=== PATIENT | male | born 1960 | race Caucasian/White ===

== ENCOUNTER 2018-10-01 07:15 | Observation (INO) | payer OTHER ==
--- NOTE | 2018-10-01 06:42 | PDHPUP ---
History & Physical Update H&P update statement: This history and physical update is based on an assessment of the patient which was completed after admission or registration (within 24 hours), but prior to the surgery/procedure. H&P update: H&P reviewed & patient examined, no change in patient's condition since H&P completed
[~2018-10-01 07:15] MED LIST: ROPIVACAINE 0.2% 80 MG, EPINEPHrine 0.2 MG, KETOROLAC TROMETHAMINE 30 MG in SYRINGE 0 ML IU ONE; TRANEXAMIC ACID 3,000 MG in NS (SYRINGE) 50 ML IRR ONE; TRANEXAMIC ACID 3,000 MG/50 ML BAG IRR ONE
[2018-10-01] MEDS ORDERED: ACETAMINOPHEN 325 MG TAB PO ONE (10:18)
[2018-10-01] MEDS ORDERED: ceFAZolin 2 GM/DEXTROSE 100 ML IV ONE (10:18)
[2018-10-01] MEDS ORDERED: DEXAMETHASONE 4 MG/ML VIAL IVP ONE (10:18)
[2018-10-01] MEDS ORDERED: FAMOTIDINE 20 MG TAB PO ONE (10:18)
[2018-10-01] MEDS ORDERED: LR 1,000 ML IV ONE (10:20)
[2018-10-01] MEDS ORDERED: BUPIVACAINE/DEXTROSE 7.5MG/ML 2 ML SPINAL AMP SP ONE (11:05)
[2018-10-01] MEDS ORDERED: PHENYLEPHRINE HCL 100 MCG/ML SYR ONE (11:05)
[2018-10-01] MEDS ORDERED: LIDOCAINE 2% 100 MG/5 ML SYR ONE (11:05)
[2018-10-01] MEDS ORDERED: PROPOFOL/EMULSION 500 MG/50 ML BOTTLE IV ONE (11:06)
[2018-10-01] MEDS ORDERED: fentaNYL 100 MCG/2 ML INJ ONE (11:06)
[2018-10-01] MEDS ORDERED: MIDAZOLAM 2 MG/2 ML VIAL IVP ONE (11:54)
--- NOTE | 2018-10-01 11:54 | PDANEPAE ---
ANE History of Present Illness R knee DJD, here for R knee replacement ANE Past Medical History - Cardiovascular History Hx Hypertension: No Hx Arrhythmias: No Hx Chest Pain: No Hx Coronary Artery / Peripheral Vascular Disease: No Hx CHF / Valvular Disease: No Hx Palpitations: No - Pulmonary History Hx COPD: No Hx Asthma/Reactive Airway Disease: No Hx Recent Upper Respiratory Infection: No Hx Oxygen in Use at Home: No Hx Sleep Apnea: No Sleep Apnea Screening Result - Last Documented: Negative - Neurologic History Hx Cerebrovascular Accident: No Hx Seizures: No Hx Dementia: No - Endocrine History Hx Diabetes: No - Renal History Hx Renal Disorders: No - Liver History Hx Hepatic Disorders: No - Neurological & Psychiatric Hx Hx Neurological and Psychiatric Disorders: No - Cancer History Hx Cancer: No - Congenital Disorder History Hx Congenital Disorders: No - GI History Hx Gastrointestinal Disorders: No - Other Health History Other Health History: none - Chronic Pain History Chronic Pain: Yes (left knee pain, right shoulder and right wrist) - Surgical History Prior Surgeries: 2 left knee scopes. L KNEE TOTAL REPLACEMENT. R KNEE SCOPE. SHOULDER SURGERY. CARPEL TUNNEL RELEASE. VASECTOMY. tonsillectomy as child ANE Review of Systems Review of Systems: - Exercise capacity METS (RN): 6 METS ANE Patient History - Allergies Allergies/Adverse Reactions: Penicillins Allergy (Verified 09/20/14 10:49) Swelling/neck,face,throat - Home Medications Home Medications: Diclofenac Sodium 1% [Voltaren Gel (*)] 1 la TP DAILY PRN 09/19/18 [Last Taken 1 Week Ago ~09/24/18] Hydrocodone/APAP 5/325 [[place] 5/325 (*)] 2 each PO HS 09/19/18 [Last Taken 09/30] Ibuprofen [Motrin (*)] 300 mg PO BID PRN 09/19/18 [Last Taken 1 Week Ago ~] Tylenol 10/01/18 [Last Taken 09/30/18] - NPO status NPO Since - Liquids (Date): 10/01/18 NPO Since - Liquids (Time): 08:30 NPO Since - Solids (Date): 09/30/18 NPO Since - Solids (Time): 22:00 - Smoking Hx Smoking Status: Never smoked - Family Anes Hx Family Hx Anesthesia Complications: none ANE Labs/Vital Signs - Vital Signs Blood Pressure: 124/88 Heart Rate: 57 Respiratory Rate: 18 O2 Sat (%): 96 Height: 170.18 cm Weight: 68.039 kg ANE Physical Exam - Airway Neck exam: FROM Mallampati Score: Class 2 Mouth exam: normal dental/mouth exam - Pulmonary Pulmonary: no respiratory distress - Cardiovascular Cardiovascular: regular rate and rhythym - ASA Status ASA Status: II ANE Anesthesia Plan Anesthesia Plan: GA with mask, spinal Total IV Anesthesia: Yes
[2018-10-01] MEDS ORDERED: MIDAZOLAM 2 MG/2 ML VIAL ONE (11:56)
[2018-10-01] MEDS ORDERED: ROPIVACAINE HCL 150 MG/30 ML INJ ONE (13:20)
[2018-10-01] MEDS ORDERED: HYDROmorphONE/DILAUDID 2 MG/ML INJ IVP PRN (13:23)
[2018-10-01] MEDS ORDERED: fentaNYL 100 MCG/2 ML INJ IVP PRN (13:23)
[2018-10-01] MEDS ORDERED: MEPERIDINE 25 MG/0.5 ML AMP IVP PRN (13:23)
[2018-10-01] MEDS ORDERED: LR 500 ML IV PRN (13:23)
[2018-10-01] MEDS ORDERED: ONDANSETRON 4 MG/2 ML VIAL IVP PRN ×2 (13:23→14:05)
[2018-10-01] MEDS ORDERED: ACETAMINOPHEN 500 MG TAB PO PRN (13:23)
[2018-10-01] MEDS ORDERED: oxyCODONE IR 5 MG TAB PO PRN (13:23)
[2018-10-01] MEDS ORDERED: PROMETHAZINE HCL 25 MG/ML INJ IVP PRN ×2 (13:23→14:05)
[2018-10-01] MEDS ORDERED: DIAZEPAM 5 MG/ML 1 ML SYR IVP PRN (13:23)
[2018-10-01] MEDS ORDERED: NALOXONE HCL 0.4 MG/ML INJ IVP PRN (13:23)
[2018-10-01] MEDS ORDERED: MAGNESIUM HYDROXIDE 30 ML UDCUP PO PRN (14:05)
[2018-10-01] MEDS ORDERED: LACTULOSE 20 GM/30 ML UDCUP PO PRN (14:05)
[2018-10-01] MEDS ORDERED: TEMAZEPAM 15 MG CAP PO PRN (14:05)
[2018-10-01] MEDS ORDERED: POLYETHYLENE GLYCOL 3350 17 GM PKT PO PRN (14:05)
[2018-10-01] MEDS ORDERED: METOCLOPRAMIDE 10 MG/2 ML VIAL IVP PRN (14:05)
[2018-10-01] MEDS ORDERED: diphenhydrAMINE 25 MG CAP PO PRN (14:05)
[2018-10-01] MEDS ORDERED: BISACODYL 10 MG SUPP PR PRN (14:05)
[2018-10-01] MEDS ORDERED: ONDANSETRON DISINTEGRATING 4 MG TAB PO PRN (14:05)
[2018-10-01] MEDS ORDERED: DIPHENOXYLATE/ATROPINE LOMOTIL 1 TAB PO PRN (14:05)
[2018-10-01] MEDS ORDERED: PROMETHAZINE HCL 25 MG SUPPR PR PRN (14:05)
--- NOTE | 2018-10-01 14:05 | POSTOPPROG ---
Post Op Note Date of Operation: 10/01/18 Surgeon: Antonio Grimm Psychology Teacher: Danay Grimm PA-C Anesthesiologist: Dr. Bender Anesthesia: Spinal, Other (Specify) (adductor canal block) Pre-op Diagnosis: Right knee OA Post-op Diagnosis: same Indication: right knee pain Procedure: Right TKA Findings: severe right knee OA Inf/Abcess present in the surg proc area at time of surgery?: No EBL: 50-100
[2018-10-01] MEDS ORDERED: LR 1,000 ML IV SCH (14:30)
--- NOTE | 2018-10-01 14:38 | POSTANESTH ---
Post Anesthetic Evaluation Cardiovascular Status: Normal, Stable Respiratory Status: Normal, Stable Level of Consciousness/Mental Status: Can Participate in Eval Pain Control: Adequate, Prn Tx Ordered Nausea/Vomiting Control: Adequate, Prn Tx Ordered Complications Possibly Related to Anesthesia: None Noted (Moving bilateral lower extrem, block went well post-op without diff. No questions or complaints)
[2018-10-01] MEDS: oxyCODONE IR 5 MG TAB PO PRN ×3 (15:57→20:33)
[2018-10-01] MEDS: CYCLOBENZAPRINE 10 MG TAB PO PRN (17:04)
[2018-10-01] MEDS: ACETAMINOPHEN 325 MG TAB PO SCH (17:05)
[2018-10-01] MEDS: SENNOSIDES/DOCUSATE SODIUM TAB PO SCH (20:29)
[2018-10-01] MEDS: FAMOTIDINE 20 MG TAB PO SCH (20:29)
[2018-10-01] MEDS: ceFAZolin 2 GM/DEXTROSE 100 ML IV SCH (20:29)
[2018-10-01] MEDS: ASPIRIN 81 MG CHEWABLE TAB PO SCH (20:33)
[2018-10-02] MEDS: CYCLOBENZAPRINE 10 MG TAB PO PRN ×2 (00:53→08:11)
[2018-10-02] MEDS: ACETAMINOPHEN 325 MG TAB PO SCH ×2 (00:53→05:47)
[2018-10-02] MEDS: oxyCODONE IR 5 MG TAB PO PRN ×3 (00:53→09:09)
[2018-10-02] MEDS: ceFAZolin 2 GM/DEXTROSE 100 ML IV SCH (04:21)
[2018-10-02 07:59] VITALS: BP 124/79
[2018-10-02] MEDS: ASPIRIN 81 MG CHEWABLE TAB PO SCH (08:11)
[2018-10-02] MEDS: FAMOTIDINE 20 MG TAB PO SCH (08:11)
[2018-10-02] MEDS: SENNOSIDES/DOCUSATE SODIUM TAB PO SCH (08:12)
--- NOTE | 2018-10-02 08:34 | SOAPPROG ---
SOAP Progress Note Assessment/Plan: Assessment: Patient is doing well POD 1 s/p R TKA Pain management: pain is well controlled on oral pain meds. VTE ppx: recommend aspirin 81 mg BID for 4 weeks, cont TRES and SCDs Anemia: level is expected initially postop. Asymptomatic. Continue to monitor D/c planning: Patient has done better than anticipated and would like to be discharged to home today. Patient must be released from PT before discharge to home. postop urinary retention: straight cath'd yesterday, resolved today. Plan: 10/02/18 08:31 Subjective: Elliott is doing well, denies SOB ,chest pain and N/V Objective: Vital Signs Temp Pulse Resp BP Pulse Ox 36.8 C 76 13 124/79 H 97 10/02/18 07:59 10/02/18 07:59 10/02/18 07:59 10/02/18 07:59 10/02/18 07:59 Laboratory Results 10/02/18 04:27 10/01/18 10/02/18 10/03/18 05:59 05:59 05:59 Intake Total 2000 Output Total 1450 Balance 550 RLE: incision dressing is clean and dry, NVI, +pf/df ICD10 Worksheet Patient Problems: Problems Problem Status Onset Primary localized osteoarthritis of right knee Acute Osteoarthritis of knee Acute
--- NOTE | 2018-10-02 09:36 | GDS ---
ADMISSION DIAGNOSIS: Right knee osteoarthritis. DISCHARGE DIAGNOSIS: Right knee osteoarthritis. PROCEDURE: Right total knee arthroplasty. VTE PROPHYLAXIS: Recommend aspirin 81 mg twice daily for 4 weeks. BRIEF DESCRIPTION OF HOSPITAL STAY: Patient was admitted for an elective joint arthroplasty. The pa wilber tolerated the procedure well and has passed physical therapy. The patient was given appropriat e antibiotic prophylaxis and venous thromboembolism prophylaxis. The patient's pain was well control led on oral pain medication, patient was holding down food, and had urinated. Decision was made to d ischarge the patient. The patient was given post-operative prescriptions pre-operatively. PLAN: Follow up as scheduled in Dr. Grimm's office in 3 weeks. /[id number]/MODL
--- NOTE | 2018-10-02 13:08 | GOP ---
DATE OF OPERATION: 10/01/2018 SURGEON: Bishop Grimm MD ELECTROTYPER: YOSELYN Tsai. ANESTHESIA: Spinal. PREOPERATIVE DIAGNOSIS: Right knee osteoarthritis. POSTOPERATIVE DIAGNOSIS: Right knee osteoarthritis. PROCEDURE PERFORMED: Total knee arthroplasty. FINDINGS: ESTIMATED BLOOD LOSS: 30 cc. INDICATIONS: This is a 58-year-old male with severe and progressive pain and deformity of the right knee unresponsive to conservative care. Risks and benefits of the surgical intervention were explained in detail. DESCRIPTION OF PROCEDURE: The patient was brought to the operative room and placed on the table in the supine position. Spinal anesthesia was induced without difficulty. A pneumatic tourniquet was applied about the right proximal thigh, and the leg was prepped and draped in a sterile fashion. The leg melendez was applied. After exsanguination by elevation the tourniquet was inflated to 250 mmHg. Incision was made anterior medial from the tibial tuberosity to a point 2 cm proximal to the superior pole of the patella. Medial parapatellar arthrotomy was carried out from the superior pole of the patella and posteriorly in line with the fibers of the Type II VMO. The medial collateral ligament was elevated and the infrapatellar fat pad was resected. The patella was everted and the articular surface was excised. A 35 mm patellar button was placed. The distal femoral guide hole was drilled and the 6 degree alignment ericka was placed. A 10 mm distal femoral cut was made without difficulty. Attention was turned to the tibia and a standard 9 mm cut based on the lateral tibial condyle was performed. The tibial articular surface was excised without difficulty. Attention was turned back to the femur and a size 5 femoral cutting block was positioned. Anterior, posterior, and chamfer cuts were made, followed by the intercondylar box cut. The knee was extended and the remnants of the medial and lateral meniscus were excised. The posterior capsule was injected with ropivacaine, epinephrine and Toradol. A size 5 tibial tray was positioned. Trial reduction was then carried out. There was excellent range of motion, alignment, and stability using the 9 mm polyethylene. All trials were then removed. The pressfit components were implanted. The permanent 9 mm polyethylene was placed without difficulty. The tourniquet was deflated and all bleeders were coagulated. The wound was thoroughly irrigated and closed using interrupted sutures of 2-0 Vicryl for the joint capsule. The subcu was closed with 3-0 Vicryl and the skin with 4-0 Monocryl. Dermabond and Steri-Strips were applied followed by a compressive dressing. The patient was then moved from the operating room to the recovery room in good condition, having tolerated the procedure well. PATHOLOGY: Severe medial and patellofemoral osteoarthritis. /[id number]/MODL MTDD
== END 2018-10-02 10:38 | disposition home or self-care (01) ==
LOC: F3N 10:11
PROVIDERS: ADMIT Orthopaedic Surgery; ATTEND Orthopaedic Surgery
PROC: 0SRC06Z Replacement of Right Knee Joint with Oxidized Zirconium on Polyethylene Synthetic Substitute, Open Approach (ICD-10-PCS; principal; 2018-10-01 12:00)
DX: M17.11 Unilateral primary osteoarthritis, right knee (principal); Z96.652 Presence of left artificial knee joint
CPT/HCPCS: 27447; 73560; 97116; 97161; G0378; J0171; J0690; J1100; J1885; J2001; J2250; J2370; J2704; J2795; J3010